=== PATIENT | female | born 1945 | race Caucasian/White ===

== ENCOUNTER 2020-08-26 18:40 | Emergency (ER) | payer MEDICARE ==
[2020-08-26] MEDS ORDERED: GUAIFENESIN-CODEINE 5 ML SYRUP ONE (19:48)
[2020-08-26 20:39] LABS: BASOPHILS % (AUTO) 0.3 % (0.0-5.0); EOSINOPHILS % (AUTO) 0.4 % (0.0-8.0); HEMATOCRIT 41.5 % (36-48); LYMPHOCYTES % (AUTO) 10.2 % (21.0-51.0); MEAN CORPUSCULAR HEMOGLOBIN 29.5 pg (27.0-33.0); MEAN CORPUSCULAR HGB CONC 34.5 g/dL (32.0-36.0); MEAN CORPUSCULAR VOLUME 85.7 fL (79-99); MONOCYTES % (AUTO) 7.7 % (3.0-13.0); NEUTROPHILS % (AUTO) 80.9 % (40.0-77.0); PLATELET COUNT (AUTO) 245 K/uL (130-400); RED BLOOD CELL COUNT(AUTO) 4.84 MIL/uL (4.00-5.50); RED CELL DISTRIBUTION WIDTH 14.1 % (11.0-15.5); WHITE BLOOD COUNT (AUTO) 7.4 K/uL (4.8-10.8)
[2020-08-26 21:00] LABS: ALBUMIN 3.2 g/dL (3.5-5.0); BILIRUBIN,TOTAL 0.3 mg/dL (0.2-1.0); CREATININE 1.7 mg/dL (0.5-1.5); CRP QUANTITATIVE 126.8 mg/L (0.00-9.0); TOTAL PROTEIN, SERUM 7.1 g/dL (6.0-8.3)
[2020-08-26 21:32] LABS: B-TYPE NATRIURETIC PEPTIDE 52 pg/mL (0-100)
[2020-08-26] MEDS ORDERED: SODIUM CHLORIDE 0.9% 1000ML 1,000 ML IV ONE (21:39)
[2020-08-26] MEDS ORDERED: POTASSIUM CHLORIDE 20 MEQ ERTAB PO ONE (21:42)
[2020-08-26] MEDS ORDERED: DEXAMETHASONE 4 MG TAB ONE (21:42)
[2020-08-26] MEDS ORDERED: DOXYCYCLINE HYCLATE 100 MG TABLET PO ONE (21:43)
[2020-08-26] MEDS ORDERED: IOHEXOL 350 MG/ML 100ML INFUS..BTL IV ONE (22:21)
[2020-08-26] MEDS ORDERED: ACETAMINOPHEN EXTRA STRENGTH 500 MG TABLET ONE (23:50)
== END 2020-08-27 00:06 | disposition home or self-care (01) ==
LOC: EDH 18:40
DX: U07.1 COVID-19 (principal); J12.82 Pneumonia due to coronavirus disease 2019; E03.9 Hypothyroidism, unspecified; E78.00 Pure hypercholesterolemia, unspecified; E86.0 Dehydration; N18.9 Chronic kidney disease, unspecified; Z87.891 Personal history of nicotine dependence
CPT/HCPCS: 36415; 71045; 71275; 80053; 83605; 83880; 84484; 85025; 85378; 86140; 93005; 96360; 96361; 99285; J7030; J8540; Q9967

== ENCOUNTER 2024-09-07 10:23 | Emergency (ER) | payer MEDICARE ==
[~2024-09-07] VITALS: Ht 170.2 cm; Wt 74.8 kg
--- NOTE | 2024-09-07 10:44 | ERN ---
ED Note History of Present Illness Stated Complaint: SHOULDER PAIN, POSIBLY BROKEN Chief Complaint: Shoulder Injury/Pain Time Seen by MD: 10:26 Dictation: The patient is a 78-year-old woman with a medical history of hypertension, hypercholesterolemia, hypothyroidism, and an anxiety disorder presented to the emergency department following a fall from her bed at 11:00 p.m. last night. Upon landing on the wooden floor, she impacted her left shoulder and also struck her head. Since the incident, she has been unable to move her left shoulder and reports severe pain, rating it as 10/10, describing the sensation as if her shoulder is dislocated or fractured. She took ibuprofen without symptomatic relief. She does not report any numbness, tingling, or neurological deficits over upper extremities. Notably, she has a history of a clavicle fracture from eight years ago, which did not necessitate surgical treatment. Allergies: Coded Allergies: No Known Drug Allergies (Unverified Allergy, Unknown, 09/07/24) Home Meds Active Scripts Hydrocodone/Acetaminophen (Hydrocodon-Acetaminophen 5-325) 5 Mg-325 Mg Tablet, 1 TAB PO TIDP PRN for pain for 10 Days, #30 TAB 0 Refills Prov:NITISH NEFF DO 09/07/24 Meloxicam (Meloxicam) 7.5 Mg Tablet, 1 TAB PO DAILY for 10 Days, #10 TAB 0 Refills Prov:KOBI PEDRO MD 09/07/24 Past Medical History Past Medical History: High Cholesterol, Hypertension, Hypothyroid, Renal Disese Surgical History: Other, BTL Surgical History Other: ASHER KNEES, HERNIA REPAIR RT SIDE., Review of System Dictation REVIEW OF SYSTEMS CONSTITUTIONAL: Complaints of excruciating, 10/10 pain over the left shoulder. Denies fevers, chills, or night sweats. No unintentional weight loss reported. NEUROLOGICAL: Denies headache, amaurosis fugax, motor weakness, sensory deficit, vertigo/spinning sensation, gait abnormalities, or tremors. ENT: No hearing loss, otalgia, otorrhea, rhinitis, rhinorrhea, hoarseness, or sore throat. CARDIOVASCULAR: Denies any exertional angina, dyspnea on exertion, orthopnea, paroxysmal nocturnal dyspnea, palpitations, life-threatening arrhythmias, claudication. PULMONARY: Denies any shortness of breath, cough, phlegm/sputum, hemoptysis, pleuritic chest pain. SLEEP: Denies morning headaches, daytime somnolence or napping. Denies difficulty falling asleep, staying asleep, waking from sleep. Denies knowledge of snoring. GASTROINTESTINAL: Denies any type of dysphagia to either liquids or solids. Denies nausea, vomiting, pyrosis, early satiety, abdominal pain, diarrhea, constipation, or changes in stool consistency or caliber. Denies coffee-ground emesis, hematemesis, hematochezia, or melanotic stools. GENITOURINARY: Denies frequency, urgency, nocturia, hematuria or incontinence (Storage/Irritative symptoms.) Low urinary stream, straining to void, urinary intermittency or hesitancy, splitting of the voiding stream, terminal dribbling. ENDOCRINOLOGIC: Denies polyuria, polydipsia, polyphagia or heat/cold intolerances. HEMATOLOGIC: Denies thrombophilia/previous clots, or coagulopathy/bleeding diso rders. ONCOLOGIC: Denies personal history of malignancy. DERMATOLOGIC: Denies rashes or pruritus. PSYCHIATRIC: Denies any suicidal or homicidal ideation. Denies hallucinations. Initial Vital Sign VS Vital Signs Date Time Temp Pulse Resp B/P (MAP) Pulse Ox O2 Delivery O2 Flow Rate FiO2 09/07/24 10:35 83 18 170/114 97 Room Air 0 09/07/24 11:01 98.6 21 Physical Exam Dictation PHYSICAL EXAM GENERAL APPEARANCE: The patient is awake, alert, and oriented, in no acute cardiopulmonary distress. NEUROLOGICAL: Cranial nerves II-XII grossly intact. Motor is 5/5 in bilateral upper and lower extremities proximal to distal. No sensory deficits. HEENT: Face is symmetric. Pupils are equal and reactive. Extraocular movements are intact. NECK: Supple. No JVD. No thyromegaly. No submental, submandibular, pre- /postauricular, occipital or supraclavicular lymphadenopathy. CHEST: Normal chest expansion. No Telemetry. LUNGS: Absence of any rales, rhonchi or any wheezing. CARDIOVASCULAR: Regular. S1 and S2 normal. No appreciable rubs, murmurs or gallops. ABDOMEN: Soft, nontender, and nondistended. There is no rebound, voluntary guarding, or rigidity. : Deferred. No Bosch. EXTREMITIES: Pain over the left shoulder radiating to the back, range of motion could not be assessed due to the pain. Non-edematous and not cyanotic. No clubbing. Good capillary refill. SKIN: No skin breakdown. ED Course ED Course Orders Procedure Category Date Status Time Shoulder Comp 2+Vws Lt RAD 09/07/24 Resulted 10:39 Ct Head/Brain W/O CT 09/07/24 Resulted Contrast 10:39 Hydromorphone 0.5mg PHA 09/07/24 Complete Syg (Dilaudid 0.5mg 11:00 Apply Ice Pack To: CPOE 09/07/24 Transmitted (Er) 10:41 *Nursing CPOE 09/07/24 Transmitted Communication: 11:14 Current Medications Medications (Trade) Dose Ordered Sig/Kavitha Route PRN Reason Start Time Stop Time Status Last Admin Dose Admin Hydromorphone HCl (DiLAUDid 0.5MG INJ) 0.5 mg ONCE ONCE IVP 09/07/24 11:00 09/07/24 11:01 DC 09/07/24 11:23 Vital Signs Date Time Temp Pulse Resp B/P (MAP) Pulse Ox O2 Delivery O2 Flow Rate FiO2 09/07/24 11:01 98.6 80 18 158/92 97 Room Air* 0 21 09/07/24 10:35 83 18 170/114 97 Room Air 0 10:30 The patient was assessed in the ED triage room 1. She appears in distress secondary to pain. She is running hypertensive with blood pressure 170/114. Range of motion could not be per from as she complaints of excruciating pain over the left shoulder radiating to the back. The patient has underlying kidney disorder and says she can not have NSAIDs however she took ibuprofen in the morning. We will give Dilaudid 0.5 mg IV, apply ice pack and order investigations including x-ray of the left shoulder to rule out any fractures and CT head to rule out any bleeding. We will evaluate if the patient requires any emergency treatment or inpatient hospitalizations once the investigations are back. We will continue close monitoring the patient 11:15: The X-ray examination of the left shoulder reveals a nondisplaced fracture in the proximal region of the humerus. The CT scan of the head did not indicate any significant bleeding. A sling will be applied to the left shoulder. At this time, the patient does not necessitate emergency surgery or inpatient care. We will provide a prescription for analgesics and offer guidance on managing the fractured shoulder. The patient is advised to schedule a follow-up appointment with the orthopedic surgeon, Dr. Marino Loco, as an outpatient. This information was communicated to the patient, who confirmed her understanding. Medical Decision Making MDM MDM Differential diagnosis: Nondisplaced fracture of surgical neck of the humerus, fracture of left clavicle with nonunion Rationale: Tests considered and ordered secondary to shared decision making include: Previous outside records reviewed: Old ER visits. Risk of complication and/or morbidity or mortality of patient management: None Medications-Per medication reconciliation Need for hospitalization: Patient does not meet criteria for hospitalization. Need for emergency major/minor surgery: No There are no social concerns with this patient. Prescription drug management Prescriptions will include symptomatic care Patient's prior external medical records from other ER visits were reviewed by me as indicated. Prior testing and results from previous visits were reviewed. Prior tests were taken into account with medical decision making and resource utilization, independent historian/historians were used to obtain complete medical history. I independently interpreted the test that were performed, results were reviewed by me and considered findings on radiology if ordered. DX & DISP Disposition: Discharge Departure Impression: Primary Impression: Nondisplaced fracture of proximal end of humerus Additional Impression: Fracture of left clavicle with nonunion Critical Time: 30 minutes Condition: Stable Scripts Hydrocodone/Acetaminophen (Hydrocodon-Acetaminophen 5-325) 5 Mg-325 Mg Tablet 1 TAB PO TIDP PRN for pain for 10 Days, #30 TAB 0 Refills Prov: NITISH NEFF DO 09/07/24 Meloxicam (Meloxicam) 7.5 Mg Tablet 1 TAB PO DAILY for 10 Days, #10 TAB 0 Refills Prov: KOBI PEDRO MD 09/07/24 Additional Instructions: Take pain medications as prescribed with food as needed Follow up with the orthopedic dr. Marino Loco for nondisplaced proximal humerus fracture management Sling usage: Wear the sling at all times initially, only removing it for hygiene purposes or as directed by your doctor. Pain management: Take prescribed pain medication as needed and apply ice packs to the injured area for 10-20 minutes at a time, several times a day. Movement restrictions: Avoid lifting your left arm, reaching overhead, or making sudden movements with your shoulder. Visit the emergency department or call 911 should you experience any neurological deficits and coding tingling, numbness, weakness over the affected area. Referrals: SELF,REFERRAL (PCP) MARINO LOCO MD I have reviewed, & agreed with my scribe's, documentation. I have reviewed the case, and I agree with, Diagnosis and Plan I have examined patient, & reviewed all documents, & agreed W/ the Diagnosis, and Plan I performed a substantive portion of the visit. I have reviewed and personally made and approve the management plan that is documented in the notes by myself with KRYSTAL/resident. I acknowledged full responsibility for the patient's management plan. KOBI PEDRO MD Sep 07, 2024 10:44 NITISH NEFF DO Sep 07, 2024 11:17
[2024-09-07 11:01] VITALS: BP 158/92; PULSE 80; RESP 18; TEMP 98.6; O2SAT 97
[2024-09-07] MEDS: hydroMORPHone 0.5 MG SYG (0.5MG/0.5ML) IVP ONE (11:23)
[2024-09-07] MEDS ORDERED: MELO-106 PO (11:33)
[2024-09-07] MEDS ORDERED: HYDR-4060 PO (11:38)
--- NOTE | 2024-09-07 12:09 | HMCIMG ---
Exam Type: CT HEAD/BRAIN W/O CONTRAST Clinical Information: H/o fall Comparison: None CT Dose Index (CTDI): 57.33 mGy Dose Length Product (DLP): 956.79 total mGy-cm Findings: The examination shows atrophy. There is low attenuation throughout the periventricular white matter locations, consistent with chronic small vessel ischemic changes. No acute intra- or extra-axial fluid collections are seen. There is no evidence of acute or chronic hemorrhage. There is no mass effect or shift of midline structures. There are no areas to suggest acute infarct. The skull windows show no significant abnormalities. IMPRESSION: 1. ATROPHY AND CHRONIC SMALL VESSEL ISCHEMIC CHANGES. This study was performed using dose reduction techniques to include automated exposure control and/or adjustment of the mA and/or kV according to patient size.
--- NOTE | 2024-09-07 12:26 | HMCIMG ---
Exam Type: SHOULDER COMP 2+VWS LT Clinical Information: H/o fall, Left shoulder injury Comparison: None FINDINGS and impression: Acute nondisplaced femoral neck fracture. Old unfused fracture of the mid clavicle. No other fractures or abnormalities.
== END 2024-09-07 11:51 | disposition home or self-care (01) ==
LOC: EDH 10:23
DX: S42.202A Unspecified fracture of upper end of left humerus, initial encounter for closed fracture (principal); S42.002A Fracture of unspecified part of left clavicle, initial encounter for closed fracture; E03.9 Hypothyroidism, unspecified; E78.00 Pure hypercholesterolemia, unspecified; I10 Essential (primary) hypertension; Z79.1 Long term (current) use of non-steroidal anti-inflammatories (NSAID); Z98.51 Tubal ligation status; Z98.890 Other specified postprocedural states; W06.XXXA Fall from bed, initial encounter; Y93.89 Activity, other specified; Y92.89 Other specified places as the place of occurrence of the external cause; Y99.8 Other external cause status
CPT/HCPCS: 99285; 96374; 70450; 73030; J1171